=== PATIENT | female | born 1990 | race Caucasian/White ===

== ENCOUNTER 2016-12-09 11:27 | Inpatient (IN) | payer BC ==
[~2016-12-09] VITALS: Ht 165.1 cm; Wt 70.5 kg
[2017-01-01] VITALS (41 sets, daily range): BP systolic 108–156; BP diastolic 55–93; PULSE 69–146; TEMP 97.3–97.8
[2017-01-01] MEDS ORDERED: CALCIUM CARBON650 M2 (07:47)
[2017-01-01] MEDS ORDERED: PRENATAL (07:47)
[2017-01-01 08:05] LABS: BASO % 0.2 % (0.0-2.0); EOS % 0.3 % (0-4.0); GRAN # 9.2 (1.4-6.5); GRAN % 72.9 % (42.2-75.2); HEMOGLOBIN 12.7 g/dl (12.5-16.0); LYMPH # 2.3 (1.2-3.4); LYMPH % 18.2 % (20.0-51.0); MEAN CELL VOLUME 96 fl (80.0-100.0); MEAN CORPUSCULAR HEMOGLOBIN 34 pg (27.0-31.0); MEAN CORPUSCULAR HGB CONC 35 g/dl (33.0-37.0); MEAN PLATELET VOLUME 10.5 fl (7.4-10.4); MONO # 0.9 (0.1-0.6); MONO % 7.4 % (1.7-9.3); PLATELET COUNT 157 K/mm3 (130-400); RED BLOOD COUNT 3.74 M/mm3 (4.10-5.30); WHITE BLOOD COUNT 12.6 K/mm3 (4.8-10.8)
[2017-01-01 08:06] LABS: HEMATOCRIT 35.9 % (37.0-47.0)
[2017-01-01] MEDS ORDERED: PERCOCET 325 MG1 TA2 PO (11:17)
[2017-01-01] MEDS ORDERED: MOTRIN 800800 MG/TAB PO (11:17)
[2017-01-02 02:15] VITALS: BP 114/66; PULSE 65; TEMP 98.4
[2017-01-02 07:58] VITALS: BP 104/66; PULSE 67; TEMP 97.5
[2017-01-02 16:06] VITALS: BP 115/72; PULSE 70; TEMP 98.3
[2017-01-02 21:30] VITALS: BP 126/73; PULSE 79; TEMP 97.4
[2017-01-03 09:56] VITALS: BP 123/72; PULSE 78; TEMP 97.8
== END 2017-01-03 12:25 | disposition home or self-care (01) | DRG 775 ==
LOC: LDR 01-01 07:04 → OB 01-01 08:24
PROVIDERS: Obstetrics & Gynecology
PROC: 10E0XZZ Delivery of Products of Conception, External Approach (ICD-10-PCS; principal; 2017-01-01)
PROC: 0DQR0ZZ Repair Anal Sphincter, Open Approach (ICD-10-PCS; 2017-01-01)
PROC: 3E033VJ Introduction of Other Hormone into Peripheral Vein, Percutaneous Approach (ICD-10-PCS; 2017-01-01)
DX: O75.89 Other specified complications of labor and delivery (principal); O70.21 Third degree perineal laceration during delivery, IIIa; Z3A.39 39 weeks gestation of pregnancy; Z37.0 Single live birth
CPT/HCPCS: J2405; J2590; J7120

== ENCOUNTER → 2017-01-04 | Outpatient (CLI) | payer BC ==
[~2017-01-04] MED LIST: CALCIUM CARBON650 M2; MOTRIN 800800 MG/TAB PO; PERCOCET 325 MG1 TA2 PO; PRENATAL
== END ==
LOC: LAC 13:23
DX: Z39.1 Encounter for care and examination of lactating mother (principal); Z71.89 Other specified counseling

== ENCOUNTER 2018-03-20 08:53 | Emergency (ER) | payer BC ==
[~2018-03-20] VITALS: Ht 152.4 cm; Wt 58.2 kg
[2018-03-20 09:02] VITALS: TEMP 98.7
[2018-03-20 09:23] LABS: COLLECTION METHOD CLEAN CATCH
[2018-03-20 09:26] LABS: HEMATOCRIT 41.4 % (37.0-47.0); MEAN CELL VOLUME 89 fl (80.0-100.0); MEAN CORPUSCULAR HEMOGLOBIN 32 pg (27.0-31.0); MEAN CORPUSCULAR HGB CONC 36 g/dl (33.0-37.0); PLATELET COUNT 208 K/mm3 (130-400); RED BLOOD COUNT 4.64 M/mm3 (4.10-5.30); REDCELL DISTRIBUTION WIDTH-CV 11.7 % (11.5-14.5)
[2018-03-20 09:35] LABS: ALBUMIN 4.4 gm/dL (3.5-5.0); BILIRUBIN,TOTAL 1.1 mg/dL (0.0-1.0); CALCIUM 9.2 mg/dL (8.4-10.2); CREATININE, serum 0.53 mg/dL (0.52-1.25); POTASSIUM 3.8 mmol/L (3.4-5.0); TOTAL PROTEIN 7.5 gm/dL (6.4-8.2)
[2018-03-20 09:36] LABS: MUCOUS Present /lpf; PH 5 (5-8); URINE APPEARANCE Cloudy; URINE BACTERIA None Seen /hpf; URINE BILIRUBIN Negative (NEGATIVE); URINE BLOOD Negative (NEGATIVE); URINE COLOR Amber; URINE GLUCOSE Negative (NEGATIVE); URINE KETONE 1+ (NEGATIVE); URINE LEUKOCYTE ESTERASE Trace (NEGATIVE); URINE NITRATE Negative (NEGATIVE); URINE PROTEIN(semi-quant) 2+ (NEGATIVE); URINE UROBILINOGEN Negative (NEGATIVE)
[2018-03-20 09:55] LABS: BAND 12 % (0-10); LYMPHOCYTE 3 % (20.0-51.0); NEUTROPHILS 84 % (42.0-75.2)
[2018-03-20 09:56] LABS: PLATELET ESTIMATE NORMAL (NORMAL)
[2018-03-20] MEDS ORDERED: CEPHALEXIN500 M1 PO (10:06)
[2018-03-20 10:40] VITALS: BP 120/69; PULSE 97
== END 2018-03-20 10:40 | disposition home or self-care (01) ==
LOC: COL.ER 08:53
PROVIDERS: Physician Assistant
DX: O21.9 Vomiting of pregnancy, unspecified (principal); O26.891 Other specified pregnancy related conditions, first trimester; R19.7 Diarrhea, unspecified; Z3A.12 12 weeks gestation of pregnancy
CPT/HCPCS: J2405; J7030

== ENCOUNTER 2018-09-27 20:05 | Inpatient (IN) | payer BC ==
[2018-09-27] VITALS (11 sets, daily range): BP systolic 113–134; BP diastolic 67–89; PULSE 79–96; TEMP 98.2–98.8
[~2018-09-27] VITALS: Ht 152.4 cm; Wt 70.5 kg
[~2018-09-27 20:05] MED LIST changes: +CEPHALEXIN500 M1 PO
--- NOTE | 2018-09-27 20:10 | NUR ---
Ambulatory to unit for labor assessment, accompanied by spouse. Oriented to room, monitor, plan of . Questions invited and answered.
[2018-09-27] MEDS ORDERED: UNISOM25 MG PO (20:37)
[2018-09-27] MEDS ORDERED: MOTRIN 800800 MG/TAB PO (21:37)
[2018-09-27 22:10] LABS: BASO % 0.2 % (0.0-2.0); EOS # 0.1 (0.0-0.7); EOS % 0.5 % (0-4.0); GRAN # 11.7 (1.4-6.5); GRAN % 75.1 % (42.2-75.2); HEMOGLOBIN 13.4 g/dl (12.5-16.0); LYMPH # 2.9 (1.2-3.4); LYMPH % 18.7 % (20.0-51.0); MEAN CELL VOLUME 95 fl (80.0-100.0); MEAN CORPUSCULAR HEMOGLOBIN 33 pg (27.0-31.0); MEAN CORPUSCULAR HGB CONC 35 g/dl (33.0-37.0); MEAN PLATELET VOLUME 10.5 fl (7.4-10.4); MONO # 0.8 (0.1-0.6); MONO % 4.9 % (1.7-9.3); PLATELET COUNT 158 K/mm3 (130-400); RED BLOOD COUNT 4.01 M/mm3 (4.10-5.30); REDCELL DISTRIBUTION WIDTH-CV 11.7 % (11.5-14.5)
--- NOTE | 2018-09-27 22:22 | NUR ---
Pt states "I feel kind of woozy" BP 127/69 P86. Lr continues at bolus rate. HOB lowered.
[2018-09-28] VITALS (14 sets, daily range): BP systolic 115–140; BP diastolic 59–82; PULSE 68–111; TEMP 97.2–97.7
--- NOTE | 2018-09-28 00:50 | NUR ---
SVE by Dr Gonzales. Complete. 0052 Pt set up for delivery. Perineal prep. 0056 Pushing [address] infant [address] Dr Gonzales. Pt and family loving and excited about infant and delivery.
--- NOTE | 2018-09-28 01:15 | NUR ---
perineal repair complete, Fundal massage yields several small clots, fundus firms with massage. Pericare completed, ice pack to perineum, bed together.
--- NOTE | 2018-09-28 02:30 | NUR ---
moderate lochia with fundal check, no clots, fundus firms readily with massage
--- NOTE | 2018-09-28 03:45 | NUR ---
Up to bathroom with slightly unsteady gait. 150cc emesis. voids good amount, performs own pericare, clean gown on. While walking out of bathroom, states "I'm feeling dizzy" Assisted back to bed, cold washcloth to back of neck. 0400 To room via wheelchair, assisted into bed. Instructed not to get up without staff assistance, verbalizes understanding.
--- NOTE | 2018-09-28 09:00 | NUR ---
Initial visit; Parents thanked Sem Manager for offering congratulations and God's blessings for the of their son. Sem Manager thanked family for choosing [facility].
--- NOTE | 2018-09-28 12:30 | NUR ---
1230- This RN called to bedside. Pt complains of N/V. VSS. Offered to call MD for medication but Pt declines at this time. Pt states she wants to try to sleep. Encouraged to call out if nausea does not improve. Pt verbalizes understanding.
[2018-09-29 08:00] VITALS: BP 110/70; PULSE 88; TEMP 98.2
[2018-09-29] MEDS ORDERED: NEWMANS TOP (08:54)
== END 2018-09-29 10:50 | disposition home or self-care (01) | DRG 807 ==
LOC: LDRO 20:05 → LDR 20:10 → LDRO 21:35 → OB 09-28 04:00
PROVIDERS: ADMIT Obstetrics & Gynecology
PROC: 10907ZC Drainage of Amniotic Fluid, Therapeutic from Products of Conception, Via Natural or Artificial Opening (ICD-10-PCS; 2018-09-27)
PROC: 10E0XZZ Delivery of Products of Conception, External Approach (ICD-10-PCS; principal; 2018-09-28)
PROC: 0KQM0ZZ Repair Perineum Muscle, Open Approach (ICD-10-PCS; 2018-09-28)
DX: O10.92 Unspecified pre-existing hypertension complicating childbirth (principal); Z37.0 Single live birth; O99.62 Diseases of the digestive system complicating childbirth; Z3A.39 39 weeks gestation of pregnancy; O70.1 Second degree perineal laceration during delivery; K21.9 Gastro-esophageal reflux disease without esophagitis
CPT/HCPCS: J2405; J2590; J7120

== ENCOUNTER → 2019-09-05 | Outpatient (CLI) | payer BC ==
[~2019-09-05] MED LIST changes: +NEWMANS TOP; +UNISOM25 MG PO
== END ==
LOC: ZCOL.LAB 14:05
DX: M79.10 Myalgia, unspecified site (principal); R53.83 Other fatigue; R19.7 Diarrhea, unspecified; Z20.828 Contact with and (suspected) exposure to other viral communicable diseases

== ENCOUNTER 2020-09-20 08:17 | Inpatient (IN) | payer BC ==
[~2020-09-20] VITALS: Ht 165.1 cm; Wt 75.9 kg
[~2020-09-20 08:17] MED LIST changes: -ASPIRIN E.C. 8181 MG PO; -B-12 500 MCG PO; -FERROUSGLUC256MG; -LEXAPRO20 MG PO; -OSCAL 500 TAB500 MG PO; -STOOL SOFTENER100 M2 PO
[2020-09-22] MEDS ORDERED: UNISOM25 MG PO (16:53)
[2020-09-22] MEDS ORDERED: OSCAL 500 TAB500 MG PO (16:53)
[2020-09-22] MEDS ORDERED: FERROUSGLUC256MG (16:53)
[2020-09-22] MEDS ORDERED: LEXAPRO20 MG PO (16:54)
[2020-09-22] MEDS ORDERED: STOOL SOFTENER100 M2 PO (16:54)
[2020-09-22] MEDS ORDERED: B-12 500 MCG PO (16:55)
[2020-09-22] MEDS ORDERED: ASPIRIN E.C. 8181 MG PO (16:55)
[2020-09-23] VITALS (35 sets, daily range): BP systolic 103–152; BP diastolic 56–91; PULSE 68–94; TEMP 97.5–97.8
--- NOTE | 2020-09-23 06:30 | NUR ---
0630- PT ON UNIT FOR IOL. ORIENTED TO ROOM AND PUTS ON A CLEAN GOWN. 0633- FHR MONITOR AND TOCO CONNECTED TO PT. ASSESSMENT DONE AND CONSENTS EXPLAINED AND PROVIDED.
[2020-09-23 07:15] LABS: BASO % 0.2 % (0.0-2.0); EOS # 0.1 (0.0-0.7); EOS % 1.1 % (0-4.0); GRAN # 5.8 (1.4-6.5); GRAN % 64.7 % (42.2-75.2); HEMATOCRIT 37.3 % (37.0-47.0); HEMOGLOBIN 12.7 g/dl (12.5-16.0); LYMPH # 2.4 (1.2-3.4); LYMPH % 26.9 % (20.0-51.0); MEAN CELL VOLUME 97 fl (80.0-100.0); MEAN CORPUSCULAR HEMOGLOBIN 33 pg (27.0-31.0); MEAN CORPUSCULAR HGB CONC 34 g/dl (33.0-37.0); MEAN PLATELET VOLUME 10.5 fl (7.4-10.4); MONO # 0.6 (0.1-0.6); MONO % 6.3 % (1.7-9.3); PLATELET COUNT 151 K/mm3 (130-400); RED BLOOD COUNT 3.83 M/mm3 (4.10-5.30); REDCELL DISTRIBUTION WIDTH-CV 12.4 % (11.5-14.5)
--- NOTE | 2020-09-23 11:50 | NUR ---
1150- SVE 9-10/100/0. PT REPOSITIONED RL WITH PB. 1155- THIS RN CALLED . SEE PHYSICIAN NOTIFICATION. 1207- ON UNIT AND INTO PT BEDSIDE. PT PREPPED FOR DELIVERY. PT BEGINS PUSHING WITH PROVIDER. 1214- SPONTANEOUS DELIVERY OF VIABLE MALE INFANT. CORD CLAMPED X2 AND CUT FROM UMBILICUS. INFANT DRIED AND PLACED ON MATERNAL ABDOMEN. CARE OF TO LIZZY GALVIN. APGARS 8/9/9. 1217- SPONTANEOUS DELIVERY OF INTACT PLACENTA. FUNDUS FIRM AT UMBILICUS. LOCHIA WNL. PITOCIN BOLUS INFUSING PER PROTOCOL. 2ND DEGREE LACERATION REPAIRED BY PROVIDER. ICE PACK APPLIED TO PERINEUM. BP 132/60 AND HR 88. NO QUESTIONS AT THIS TIME.
[2020-09-23] MEDS ORDERED: MOTRIN 800800 MG/TAB PO (17:57)
[2020-09-24 03:00] VITALS: BP 126/75; PULSE 74; TEMP 7.9
[2020-09-24 08:27] VITALS: BP 107/67; PULSE 77; TEMP 97.5
--- NOTE | 2020-09-24 09:25 | NUR ---
To nursery for circumcision.
--- NOTE | 2020-09-24 09:32 | NUR ---
here for rounds. Dicharge order obtained.
--- NOTE | 2020-09-24 09:49 | NUR ---
Initial visit; Mom thanked Director Of Coding for offering congratulations and God's blessings for the of her son. Director Of Coding thanked mom for choosing [facility].
[2020-09-24] MEDS ORDERED: NEWMANS TOP (10:00)
--- NOTE | 2020-09-24 14:00 | NUR ---
1400-Reviewed discharge instructions with patient. Denies questions. Provided new prescriptions. 1435-Ambulatory off unit.
== END 2020-09-24 14:35 | disposition home or self-care (01) | DRG 806 ==
LOC: LDR 09-23 06:17 → OB 09-23 06:17
PROVIDERS: ADMIT Obstetrics & Gynecology
PROC: 10E0XZZ Delivery of Products of Conception, External Approach (ICD-10-PCS; principal; 2020-09-23)
PROC: 0KQM0ZZ Repair Perineum Muscle, Open Approach (ICD-10-PCS; 2020-09-23)
PROC: 10907ZC Drainage of Amniotic Fluid, Therapeutic from Products of Conception, Via Natural or Artificial Opening (ICD-10-PCS; 2020-09-23)
DX: O99.02 Anemia complicating childbirth (principal); O87.8 Other venous complications in the puerperium; Z37.0 Single live birth; O69.81X0 Labor and delivery complicated by cord around neck, without compression, not applicable or unspecified; O70.1 Second degree perineal laceration during delivery; D64.9 Anemia, unspecified; Z3A.39 39 weeks gestation of pregnancy
CPT/HCPCS: J2405; J2590; J7120

== ENCOUNTER → 2020-09-20 | Outpatient (CLI) | payer BC ==
[~2020-09-20] MED LIST changes: +ASPIRIN E.C. 8181 MG PO; +B-12 500 MCG PO; +FERROUSGLUC256MG; +LEXAPRO20 MG PO; +OSCAL 500 TAB500 MG PO; +STOOL SOFTENER100 M2 PO
== END ==
LOC: ZCOL.LAB 10:24
DX: Z20.822 Contact with and (suspected) exposure to COVID-19 (principal)

== ENCOUNTER → 2020-09-22 | Outpatient (CLI) | payer BC ==
[~2020-09-22] VITALS: Ht 165.1 cm; Wt 75.9 kg
[~2020-09-22] MED LIST changes: +ASPIRIN E.C. 8181 MG PO; +B-12 500 MCG PO; +FERROUSGLUC256MG; +LEXAPRO20 MG PO; +OSCAL 500 TAB500 MG PO; +STOOL SOFTENER100 M2 PO
--- NOTE | 2020-09-22 16:40 | NUR ---
Patient arrives ambulatory with spouse with complaints of irregular contractions over the past 24 hours. Patient denies vaginal bleeding or leaking of fluid, and reports normal movement. Patient changes into gown, EFM explained and placed. VS obtained. 1645- SVE by this RN . Patient repositioned WL. Updated on plan of care and assessment completed. See physician notification. 1715- Patient off EFM to ambulate in hallway.
[2020-09-22 17:15] VITALS: BP 133/72; PULSE 90; TEMP 98.2
[2020-09-22 18:00] VITALS: BP 132/75; PULSE 85
--- NOTE | 2020-09-22 18:05 | NUR ---
Patient reports contractions are getting more intense.
--- NOTE | 2020-09-22 18:30 | NUR ---
1830 PT STATES CONTRACTIONS ARE MORE UNCOMFORTABLE AND MUST CONCENTRATE THRU THEM. REMAIN IRREGULAR, EVERY 3-6 MINUTES. SVE /-2. COMFORTABLE WITH GOING HOME AT THIS TIME. 1834 DR KING CALLED IN FOR PROGRESS REPORT. ORDER TO DISMISS PT TO HOME. 185 HOME WITH INSTRUCTIONS.
== END ==
LOC: LDRO 16:33
DX: O62.9 Abnormality of forces of labor, unspecified (principal); Z3A.39 39 weeks gestation of pregnancy